=== PATIENT | male | born 1950 | race Caucasian/White ===

== ENCOUNTER → 2017-08-17 | Outpatient (CLI) | payer OTHER ==
[~2017-08-17] VITALS: Ht 182.9 cm; Wt 81.6 kg
[~2017-08-17] MED LIST: ALLEGRA ALLERG180 MG PO; ALTACE10 MG PO; ASPIR 8181 MG PO; ASPIRIN325 PO; ATORVASTATIN CA40 MG PO; CENTRUM SILVER1 EAC2 PO; GLUCOSAMINE CH1 EAC1 PO; IBUPROFEN 800800 M1 PO
--- NOTE | ~2017-08-17 | P ---
[facility] [place] [address] PROCEDURE REPORT Name: JIGAR NELSON Room #: [facility] John#: [id number] Admission: 08/17/17 Attend Phys: Bob Jimenez Discharge: Date of : 50 Report #: [id number] THIS REPORT FOR: //name// CC: Bob Leung MD DATE OF SERVICE: 08/17/2017 PROCEDURE PERFORMED: Colonoscopy. HISTORY OF PRESENT ILLNESS: The patient is a 67-year-old male who presents today for a routine screening colonoscopy, denies any symptoms. Last colonoscopy was 10 years ago and normal. No family history of colon cancer. DESCRIPTION OF PROCEDURE: The risks and benefits of the procedure were explained to the patient. Those risks including but not limited to bleeding, perforation, the risk of sedation. He understood these risks and gave informed consent. Sedation was given using propofol per Anesthesia. Next, a digital rectal exam was initially performed, which was normal. Next, using a standard Fujinon colonoscope, the scope was placed in the patient's anus and advanced under direct vision to the cecum. The overall prep was excellent. The cecum and ileocecal valve were normal in appearance. The ascending, transverse, descending and sigmoid colon were all normal. The rectal mucosa was normal. On retroflexion, no abnormalities were noted. The scope was then withdrawn and the procedure terminated. The patient tolerated the procedure well. IMPRESSION: Normal colonoscopy. RECOMMENDATIONS: Repeat colonoscopy in 10 years. Thank you for allowing me to participate in his care. By: [id number] Bob Escalera MD /nt
--- NOTE | ~2017-08-17 | P ---
[facility] [place] [address] [place] [address] PROCEDURE REPORT Name: JIGAR NELSON Room #: REG [facility] John#: [id number] Admission: 08/17/17 Attend Phys: Bob Jimenez Discharge: Date of : 50 Report #: [id number] THIS REPORT FOR: //name// CC: Bob Leung MD DATE OF SERVICE: 08/17/2017 PROCEDURE PERFORMED: Upper endoscopy. HISTORY OF PRESENT ILLNESS: The patient is a 67-year-old male report some dark stools. He does take aspirin as well as NSAIDs, reports intermittent heartburn symptoms. Plan is for upper endoscopy. DESCRIPTION OF PROCEDURE: The risks and benefits of the procedure were explained to the patient, those risks including but not limited to bleeding, perforation, the risk of sedation. He understood these risks and gave informed consent. Sedation was given using propofol per anesthesia. Next, using a standard Apispheren upper endoscope, the scope was placed in the patient's mouth and advanced under direct vision through the esophagus, stomach and into the second portion of the duodenum. The larynx was normal in appearance. The esophagus was normal throughout. The GE junction was normal. No evidence of esophagitis. Overall, the gastric mucosa was normal. The pylorus was normal and patent. The duodenal bulb, first and second portion were all normal. The scope was then withdrawn and the procedure terminated. The patient tolerated the procedure well. IMPRESSION: Normal upper endoscopy. RECOMMENDATIONS: We will proceed with screening colonoscopy next today. Thank you for allowing me to participate in his care. By: [id number] Bob Escalera MD /nt
== END | disposition home or self-care (01) ==
LOC: GI 08:31
DX: Z12.11 Encounter for screening for malignant neoplasm of colon (principal); Z87.891 Personal history of nicotine dependence; I10 Essential (primary) hypertension; E78.5 Hyperlipidemia, unspecified; Z98.890 Other specified postprocedural states; Z90.49 Acquired absence of other specified parts of digestive tract; Z79.82 Long term (current) use of aspirin; Z79.899 Other long term (current) drug therapy
CPT/HCPCS: 62110; 62900

== ENCOUNTER → 2018-03-20 | Outpatient (CLI) | payer OTHER ==
[~2018-03-20] VITALS: Ht 182.9 cm; Wt 82.6 kg
[~2018-03-20] MED LIST changes: +FLONASE 0.05%50 MCG NASAL; +PROTONIX40 M2 PO; +VITAMIN C WIT1000 MG PO
--- NOTE | ~2018-03-20 | P ---
[facility] [place] [address] PROCEDURE REPORT Name: JIGAR NELSON Room #: REG John Lopez#: [id number] Admission: 03/20/18 Attend Phys: Bob Jimenez Discharge: Date of : 50 Report #: [id number] THIS REPORT FOR: //name// CC: Bob Leung MD DATE OF SERVICE: 03/20/2018 PROCEDURE PERFORMED: Upper endoscopy. HISTORY OF PRESENT ILLNESS: The patient is a 67-year-old male with a history of an upper GI bleed in November 2017. At that time, he had an NG placed, possible Angelina-Harrison tear, had an endoclip placed near the GE junction, had a repeat upper endoscopy by my partner, Dr. Mcmullen in which a gastric ulcer in the proximal body was noted with a visible vessel. This was treated with epi injection and cautery. At that time, the patient was on NSAIDs. Since then, he is on aspirin 81 mg, but he is also on Protonix, which he was not on previously. He denies any symptoms at this time. No bleeding. He is here for recheck of previous ulcer. PROCEDURE: The risks and benefits of the procedure were explained to the patient, those risks including, but not limited to bleeding, perforation, and the risk of sedation. He understood these risks and gave informed consent. Sedation was given using propofol per anesthesia. Next, using a standard Olympus upper endoscope, the scope was placed in the patient's mouth and advanced under direct vision through the esophagus, stomach and into the second portion of the duodenum. The esophagus was normal throughout. The GE junction was normal. In the high gastric cardia, the previously placed endoclip was still intact. There was no ulceration around this area. Overall, the gastric mucosa was normal. There was no evidence of ulcerations or erosions. There was no bleeding. The gastric antrum was normal. The pylorus was normal and patent. The duodenal bulb, first and second portion were all normal. The scope was then withdrawn and the procedure terminated. The patient tolerated the procedure well. IMPRESSION: 1. Endoclip still in place in the high gastric cardia. 2. Otherwise, normal upper endoscopy. RECOMMENDATIONS: Continue PPI therapy indefinitely [address] [address] PROCEDURE REPORT Name: JIGAR NELSON Room #: REG [facility] Lopez#: [id number] Admission: 03/20/18 Attend Phys: Bob Jimenez Discharge: Date of : 50 Report #: [id number] Thank you for allowing me to participate in his care. <ELECTRONICALLY SIGNED> By: Bob Escalera MD 03/24/18 0830 0934 1420 Bob Escalera MD /nt
== END | disposition home or self-care (01) ==
LOC: GI 07:32
DX: Z96.89 Presence of other specified functional implants (principal); Z87.19 Personal history of other diseases of the digestive system; E78.5 Hyperlipidemia, unspecified; Z90.49 Acquired absence of other specified parts of digestive tract; Z87.891 Personal history of nicotine dependence; Z98.890 Other specified postprocedural states; Z79.899 Other long term (current) drug therapy
CPT/HCPCS: 62110; 62900

== ENCOUNTER → 2018-06-28 | Outpatient (CLI) | payer OTHER | LOC: MRI 08:49 | DX: J32.0 Chronic maxillary sinusitis (principal); J32.1 Chronic frontal sinusitis; J32.2 Chronic ethmoidal sinusitis; G52.1 Disorders of glossopharyngeal nerve; I10 Essential (primary) hypertension; E78.5 Hyperlipidemia, unspecified ==

== ENCOUNTER 2018-09-20 05:31 | Day surgery (SDC) | payer OTHER ==
[~2018-09-20] VITALS: Ht 182.9 cm; Wt 90.3 kg
[~2018-09-20 05:31] MED LIST changes: +AZELASTINE137 MCG/0. INH; +PROTONIX40 M1 PO
[2018-09-20 07:09] VITALS: BP 136/83
[2018-09-20 11:31] LABS: ALBUMIN 3.7 g/dL (3.4-5.0); MAGNESIUM 1.8 mg/dL (1.8-2.4)
--- NOTE | 2018-09-20 14:33 | O ---
[facility] [place] [address] OPERATIVE REPORT Name: JIGAR NELSON Room #: 150-5 [facility].#: [id number] Admission: 09/20/18 ������������������ Attend Phys: Reinaldo Richards MD Discharge: ������������������ Date of : 50 Report #: [id number] THIS REPORT FOR: //name// CC: Bobby Richards DATE OF SERVICE: 09/20/2018 SURGEON: Reinaldo Richards MD PREOPERATIVE DIAGNOSIS: Primary hyperparathyroidism. POSTOPERATIVE DIAGNOSIS: Primary hyperparathyroidism. OPERATION PERFORMED: 1. Parathyroidectomy, left superior parathyroid. 2. Nerve integrity monitoring x 2 hours. INDICATIONS: The patient is a 68-year-old gentleman presented on referral from Dr. Leung with dry mouth. Examination revealed a concern for a right parapharyngeal mass. CT scan was done, which was negative. He was found to have an elevated calcium and then therefore PTH was drawn, also elevated at 78. 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 Recommendation is made for exploration and parathyroidectomy. DESCRIPTION OF PROCEDURE: The patient was brought to the operating room, placed supine on the operating table. After adequate general anesthesia was achieved via endotracheal intubation with a nerve integrity monitoring endotracheal tube, a shoulder roll was placed and the neck was extended. He was prepped and draped for surgery. As a separate part of the procedure, the XSIPphone nerve integrity monitor was applied to the leads from the endotracheal tube. Ground electrodes were placed in the soft tissue overlying the sternum and contralateral shoulder. Electrode resistance and impedance was measured and found to be acceptable. Threshold and stimulus intensity parameters were set and the patient was monitored for the entirety of the case for approximately 1.5 hours in order to locate and protect the recurrent nerve. The procedure began with incision through skin and subcutaneous tissue and platysma. Subplatysmal flaps were elevated superiorly and inferiorly. Dissection was made down to the strap muscles. These were divided vertically in the midline and retracted laterally. Dissection began on the left lobe, which was the side of the interest. Preoperative iPTH was 118. The patient had been sent to Nuclear Medicine for injection. A gamma probe was then used and [facility] [address] [place] [address] OPERATIVE REPORT Name: JIGAR NELSON Room #: 150-5 [facility]..#: [id number] Admission: 09/20/18 ������������������ Attend Phys: Reinaldo Richards MD Discharge: ������������������ Date of : 50 Report #: [id number] confirmed uptake in the left upper lobe. Dissection was then began in the middle thyroid vein, was taken down between ligaclips and divided. The gland was then dissected into the tracheoesophageal groove and rolled up onto the trachea. There was a large mass present at the cricothyroid joint consistent with a superior parathyroid measuring about 1.5 cm. This was dissected free. The afferent and efferent vessels were clamped between ligaclips and divided after positively identifying the recurrent nerve by dissection and probe stimuli. This mass was then removed off the table as a specimen to pathology confirming a hypercellular parathyroid of 5.6 g. Exploration was made. The inferior parathyroid was found. This was normal size and left alone. Exploration was then made at the opposite right side. Both superior and inferior parathyroid were identified on this side, found to be normal size and left alone. An iPTH was then sent off 15 minutes after removal and returned with a value of 29 consistent with complete removal of the adenoma. Hemostasis was assured with bipolar cautery and clip ligature. A 10-Surinamese Mu drain was placed through a separate stab incision on the left neck, curled into the wound and connected to bulb suction. This was sutured in place with 2-0 silk. Strap muscles were then closed vertically in the midline with interrupted 3-0 Vicryl. A 3-0 Vicryl was used to close the platysma layer, 4-0 Vicryl deep dermal sutures were placed and then 5-0 running subcuticular Prolene on the skin. Mastisol and Steri-Strips were applied. The patient was then dressed with an Op-Site dressing. He was then returned to anesthesia awake without difficulty and returned to recovery in good condition. Sponge and needle counts were correct. There were no complications. Blood loss was about 20 mL. He will be watched until awake and stable, presuming he does well, discharged to home with plans to follow up with me in 1 week. Written and verbal discharge instructions and emergency precautions have been given to his . DISCHARGE MEDICATIONS: Include cephalexin 500 mg one t.i.d. for 10 days, hydrocodone/acetaminophen 7.5/325 one to two q. 4-6 hours p.r.n., Phenergan suppository 25 mg 1 per rectum q. 4-6 hours p.r.n., Tums 500 mg 2 p.o. b.i.d. He is instructed on light activity and a soft diet. He is also instructed on the signs and symptoms of hypocalcemia. ��������������������������������������������� <ELECTRONICALLY SIGNED> ���������������������������������������� By: Reinaldo Richards MD ��������������������������������������������� 09/20/18 1433 1057 1148 Reinaldo Richards MD /nt
--- NOTE | 2018-09-20 17:01 | NUR ---
PT ARRIVED TO FLOOR FROM PACU AT 1445 IN STABLE CONDITION.POST OP VSS.CLEAR LIQ TRAY GIVEN AND WELL TOLERATED.PT WANTED REGULAR DIET.DR CARNEY NOTIFIED AND ORDER RECEIVED.PT VOIDED APROX.450 ML CLEAR YELLOW URINE PER URINAL.NO VERBAL C/O.WILL CONTINUE TO MONITOR.
[2018-09-20 19:21] VITALS: BP 138/71
--- NOTE | 2018-09-21 02:54 | NUR ---
Pt A&Ox4, able to make needs known. Medicated at HS for c/o discomfort, denies significant pain. Denies n/v. Sx site intaqct to upper chest. FLYNN drain inact to L neck, and draining small amount bright red output. Pt reports accidently tugging on drain, howver, sutures and drain remain intact. Voiding without difficulty. BS (+). Pt currently resting in bed, call light within reach, will continue to monitor.
[2018-09-21 04:07] VITALS: BP 155/71
[2018-09-21 07:07] VITALS: BP 148/71
[2018-09-21 07:15] VITALS: BP 148/71
[2018-09-21 07:22] VITALS: BP 148/71
--- NOTE | 2018-09-21 10:32 | NUR ---
dc instructions given to pt and . pt verbalized understanding. FLYNN and GUILLAUME dc'd. pt dcd home in stable condition.
--- NOTE | 2018-09-21 14:07 | PATH ---
[facility] [address] [place] [address] PATHOLOGY RPT PROCEDURE Name: JIGAR NELSON Room #: DEP [facility] M.R.#: [id number] ������������������ Admission: 09/20/18 ������������������ Date of : 50 Discharge: 09/21/18 Report #: [id number] Path Case #: [id number] [facility] Accession Number: [id number] . 01 Material submitted: . LEFT SUPERIOR PARATHYROID . 01 Clinical history: . Hyperparathyroidism, primary. . 02 Diagnosis: Parathyroid, left superior parathyroid, parathyroidectomy: - Compatible with a parathyroid adenoma, 5.7 grams. - Completely excised. (IUV:stoneworking belt sander; 09/21/2018) MBR/09/21/2018 . 02 Electronically signed: . Rosalinda Noland MD, Pathologist NPI- [id number] . 01 Gross description: . Received fresh from the OR, labeled with the patient's name, and "left superior parathyroid", and consists of a 5.7 gram red-condon spongy tissue measuring 1.5 x 1.3 x 0.5 cm. The capsule is shiny and smooth with scattered fatty areas. The capsule is inked black and the specimen is bisected, submitted for frozen section as FSA1. The tissue is subsequently submitted for permanent sections as A1. (IUV:pit 09/20/2018) . . . FROZEN SECTION DIAGNOSIS: (Rosalinda Noland) . FSA1, left superior parathyroid, excision: - Hypercellular parathyroid tissue measuring 1.5 cm and 5.7 grams. - These findings are discussed with Dr. Reinaldo Richards in OR1 at [facility] and a written report is placed in the patient's chart. (IUV:pit 09/20/2018) . Frozen section performed at [facility], [address] [place] [address] [place] [address]. /QTP . 02 Pathologist provided ICD-10: D35.1 [place] [address] PATHOLOGY RPT PROCEDURE Name: JIGAR NELSON [facility] [id number] ������������������ Admission: 09/20/18 ������������������ Date of : 50 Discharge: 09/21/18 Report #: [id number] Path Case #: [id number] . 02 [facility] . [id number], [id number] Specimen Comment: A courtesy copy of this report has been sent to Specimen Comment: [phone], . Specimen Comment: Report sent to / DR JEFFERSON Performed at: [address], [place], [place] [id number] MD Lanre Hall MD Phone: [phone] Performed at: [address] [id number] MD Rosalinda Noland MD Phone: [phone]
== END 2018-09-21 10:35 | disposition home or self-care (01) ==
LOC: OR 05:31 → TBA 05:31 → OR 10:48 → 4E 15:09 → OR 09-21 10:35
PROVIDERS: Otolaryngology Plastic Surgery within the Head & Neck
DX: E21.0 Primary hyperparathyroidism (principal); E78.5 Hyperlipidemia, unspecified; Z87.19 Personal history of other diseases of the digestive system; Z79.899 Other long term (current) drug therapy; Z87.891 Personal history of nicotine dependence; Z90.49 Acquired absence of other specified parts of digestive tract; Z98.890 Other specified postprocedural states
CPT/HCPCS: 10783; 50010; 50101; 50386; 50417; 52190; 52220; 52225; 52287; 56524; 56526; 56528; 56760; 57006; 62110; 62900; 65134; 70005